=== PATIENT | male | born 1975 | race Caucasian/White ===

== ENCOUNTER 2016-04-26 15:42 | Emergency (ER) | payer BC ==
[~2016-04-26] VITALS: Ht 190.5 cm; Wt 85.0 kg
[~2016-04-26 15:42] MED LIST: BACTRIM DS 8001 TAB PO; CLARITIN 1010 MG/TAB; CLARITIN 1010 MG/TAB PO; CLEOCIN HCL300 MG PO; DOXYCYCLINE 10100 MG PO; FLEXERIL 1010 MG/TAB PO; FLEXERIL5 MG PO; IBU800 M1 PO; LEVAQUIN 5500 MG/TA1 PO; MOTRIN 600600 MG/TAB PO; NO HOME MEDICATIONS; NORCO 325 MG-51 TAB PO; NORCO 325 MG-7.1 TAB PO; PHENERGAN 25 TA25 MG PO; PREDNISONE20 MG PO; SKELAXIN 800MG800 MG PO; TRIAM OI 15 0.025 TOP; TRIAMCINOLONE AC0.13 TP; VENTOLIN0.09 MG IH; ZOFRAN ODT4 MG PO
[2016-04-26 15:54] VITALS: BP 103/79; PULSE 90; TEMP 98.8
[2016-04-26 16:29] LABS: INFLUENZA B NEGATIVE
== END 2016-04-26 16:43 | disposition home or self-care (01) ==
LOC: COL.ER 15:42
PROVIDERS: Physician Assistant
DX: J11.1 Influenza due to unidentified influenza virus with other respiratory manifestations (principal); Z87.891 Personal history of nicotine dependence

== ENCOUNTER 2016-11-09 13:56 | Outpatient (RCR) | payer OTHER ==
[2016-11-11] MEDS ORDERED: DOXYCYCLINE 10100 MG PO (09:52)
[2016-11-11] MEDS ORDERED: NORCO 325 MG-51 TAB PO (09:52)
== END 2016-12-10 14:04 | disposition still patient (30) ==
LOC: WSOH 13:56
DX: R10.32 Left lower quadrant pain (principal); Z90.49 Acquired absence of other specified parts of digestive tract

== ENCOUNTER 2016-11-11 08:38 | Emergency (ER) | payer SELFPAY ==
[~2016-11-11] VITALS: Ht 188 cm; Wt 85.0 kg
[2016-11-11 08:46] VITALS: TEMP 97.9
[2016-11-11] MEDS ORDERED: NORCO 325 MG-51 TAB PO (09:52)
[2016-11-11] MEDS ORDERED: DOXYCYCLINE 10100 MG PO (09:52)
[2016-11-11 10:13] VITALS: BP 106/53; PULSE 68
[2016-11-11 10:13] LABS: PH 5 (5-8); SQUAMOUS EPITHELIAL None Seen /hpf; URINE APPEARANCE Clear; URINE BACTERIA None Seen /hpf; URINE BILIRUBIN Negative (NEGATIVE); URINE BLOOD 2+ (NEGATIVE); URINE COLOR Yellow; URINE GLUCOSE Negative (NEGATIVE); URINE KETONE Negative (NEGATIVE); URINE RBC None Seen /hpf; URINE UROBILINOGEN Negative (NEGATIVE); URINE WBC 0-2 /hpf
[2016-11-11 11:48] LABS: CHLAMYDIA/TRACH by PCR Male NOT DETECTED; Neisseria Gon by PCR Male NOT DETECTED
== END 2016-11-11 10:14 | disposition home or self-care (01) ==
LOC: COL.ER 08:38
PROVIDERS: Emergency Medicine
DX: I88.8 Other nonspecific lymphadenitis (principal)
CPT/HCPCS: J1885

== ENCOUNTER → 2016-11-24 | Outpatient (CLI) | payer BC | LOC: COL.RAD 12:16 | DX: R59.0 Localized enlarged lymph nodes (principal); R10.9 Unspecified abdominal pain ==

== ENCOUNTER 2016-12-07 09:06 | Emergency (ER) | payer BC ==
[~2016-12-07] VITALS: Ht 190.5 cm; Wt 85.0 kg
[2016-12-07 09:13] VITALS: TEMP 97.7
[2016-12-07 10:16] LABS: BASO % 0.7 % (0.0-2.0); EOS # 0.2 (0.0-0.7); EOS % 3.3 % (0-4.0); GRAN # 3.1 (1.4-6.5); HEMATOCRIT 44.3 % (42.0-52.0); LYMPH # 1.6 (1.2-3.4); LYMPH % 29.1 % (20.0-51.0); MEAN CELL VOLUME 90 fl (80.0-100.0); MEAN CORPUSCULAR HEMOGLOBIN 30 pg (27.0-31.0); MEAN CORPUSCULAR HGB CONC 34 g/dl (33.0-37.0); MEAN PLATELET VOLUME 12.2 fl (7.4-10.4); MONO # 0.5 (0.1-0.6); MONO % 8.7 % (1.7-9.3); PLATELET COUNT 165 K/mm3 (130-400); RED BLOOD COUNT 4.95 M/mm3 (4.20-5.60); REDCELL DISTRIBUTION WIDTH-CV 12.7 % (11.5-14.5); WHITE BLOOD COUNT 5.4 K/mm3 (4.8-10.8)
[2016-12-07 10:34] LABS: ADJUSTED CALCIUM 9.3 mg/dL (8.4-10.2); ALANINE AMINOTRANSFERASE 19 U/L (21-72); ALBUMIN 4.1 gm/dL (3.5-5.0); ALKALINE PHOSPHATASE 41 U/L (50-136); ANION GAP 9 mmol/L (7-16); BLOOD UREA NITROGEN 22 mg/dL (9-20); CALCIUM 9.4 mg/dL (8.4-10.2); CARBON DIOXIDE 27 mmol/L (22-30); CHLORIDE 102 mmol/L (98-107); CREATININE, serum 1.02 mg/dL (0.66-1.25); GLUCOSE 84 mg/dL (74-106); POTASSIUM 4.4 mmol/L (3.4-5.0); SODIUM 139 mmol/L (137-145); TOTAL PROTEIN 6.8 gm/dL (6.4-8.2)
[2016-12-07 10:41] LABS: C-REACTIVE PROTEIN < 0.5 mg/dL (0.0-0.9)
[2016-12-07 11:45] LABS: PH 5 (5-8); SQUAMOUS EPITHELIAL None Seen /hpf; URINE APPEARANCE Clear; URINE BACTERIA None Seen /hpf; URINE BILIRUBIN Negative (NEGATIVE); URINE BLOOD Negative (NEGATIVE); URINE COLOR Yellow; URINE GLUCOSE Negative (NEGATIVE); URINE KETONE Negative (NEGATIVE); URINE RBC 0-2 /hpf; URINE UROBILINOGEN Negative (NEGATIVE); URINE WBC 0-2 /hpf
[2016-12-07 12:11] VITALS: BP 119/69; PULSE 59
== END 2016-12-07 12:12 | disposition home or self-care (01) ==
LOC: COL.ER 09:06
PROVIDERS: Nurse Practitioner
DX: R10.31 Right lower quadrant pain (principal); R19.7 Diarrhea, unspecified; G43.909 Migraine, unspecified, not intractable, without status migrainosus; F12.10 Cannabis abuse, uncomplicated; F17.210 Nicotine dependence, cigarettes, uncomplicated; Z90.49 Acquired absence of other specified parts of digestive tract
CPT/HCPCS: J7030

== ENCOUNTER 2017-02-15 22:15 | Emergency (ER) | payer BC ==
[~2017-02-15] VITALS: Ht 190.5 cm; Wt 84.1 kg
[2017-02-15 22:21] VITALS: TEMP 96.9
[2017-02-15 22:51] LABS: BASO # 0.1 (0.0-0.2); BASO % 1.1 % (0.0-2.0); EOS # 0.2 (0.0-0.7); EOS % 3.7 % (0-4.0); GRAN # 3.1 (1.4-6.5); GRAN % 49.9 % (42.2-75.2); HEMATOCRIT 41.5 % (42.0-52.0); HEMOGLOBIN 14.3 g/dl (13.5-18.0); LYMPH # 2.5 (1.2-3.4); LYMPH % 39.7 % (20.0-51.0); MEAN CELL VOLUME 89 fl (80.0-100.0); MEAN CORPUSCULAR HEMOGLOBIN 31 pg (27.0-31.0); MEAN CORPUSCULAR HGB CONC 35 g/dl (33.0-37.0); MONO # 0.3 (0.1-0.6); MONO % 5.4 % (1.7-9.3); PLATELET COUNT 168 K/mm3 (130-400); RED BLOOD COUNT 4.66 M/mm3 (4.20-5.60); WHITE BLOOD COUNT 6.3 K/mm3 (4.8-10.8)
[2017-02-15 23:01] LABS: ALANINE AMINOTRANSFERASE 24 U/L (21-72); ALBUMIN 4.2 gm/dL (3.5-5.0); ALKALINE PHOSPHATASE 39 U/L (50-136); ANION GAP 10 mmol/L (7-16); BILIRUBIN,TOTAL 0.7 mg/dL (0.0-1.0); BLOOD UREA NITROGEN 23 mg/dL (9-20); CALCIUM 9.2 mg/dL (8.4-10.2); CARBON DIOXIDE 26 mmol/L (22-30); CHLORIDE 104 mmol/L (98-107); CREATINE KINASE 80 U/L (55-170); GLUCOSE 113 mg/dL (74-106); LIPASE 138 U/L (23-300); POTASSIUM 3.9 mmol/L (3.4-5.0); SODIUM 140 mmol/L (137-145); TOTAL PROTEIN 6.7 gm/dL (6.4-8.2)
[2017-02-15 23:10] LABS: B-TYPE NATRIURETIC PEPTIDE 111 pg/mL (0-125)
[2017-02-15 23:15] LABS: TROPONIN-I < 0.012 ng/mL (0.000-0.034)
[2017-02-16] MEDS ORDERED: MEDROL 4MG DOSPA4 MG PO (00:03)
[2017-02-16] MEDS ORDERED: ULTRAM 50MG TAB50 MG PO (00:03)
[2017-02-16 00:40] VITALS: BP 115/61; PULSE 61
== END 2017-02-16 01:01 | disposition home or self-care (01) ==
LOC: COL.ER 22:15
PROVIDERS: Emergency Medicine
DX: R07.9 Chest pain, unspecified (principal); Z86.79 Personal history of other diseases of the circulatory system
CPT/HCPCS: J2060; J7030; J7512; Q9967

== ENCOUNTER → 2017-10-17 | Outpatient (CLI) | payer OTHER ==
[~2017-10-17] MED LIST changes: +MEDROL 4MG DOSPA4 MG PO; +ULTRAM 50MG TAB50 MG PO
== END ==
LOC: COL.RAD 13:16
DX: S43.491A Other sprain of right shoulder joint, initial encounter (principal); M19.011 Primary osteoarthritis, right shoulder; M25.311 Other instability, right shoulder; S43.001A Unspecified subluxation of right shoulder joint, initial encounter
CPT/HCPCS: A9585; Q9967

== ENCOUNTER 2017-10-18 15:02 | Outpatient (RCR) | payer OTHER | END 2017-10-24 13:47 | disposition home or self-care (01) | LOC: WSOH 15:02 | DX: S43.001A Unspecified subluxation of right shoulder joint, initial encounter (principal); F17.210 Nicotine dependence, cigarettes, uncomplicated; X50.0XXA Overexertion from strenuous movement or load, initial encounter; Y92.214 College as the place of occurrence of the external cause; Y99.0 Civilian activity done for income or pay; Z79.1 Long term (current) use of non-steroidal anti-inflammatories (NSAID) ==

== ENCOUNTER 2019-04-04 15:45 | Outpatient (RCR) | payer OTHER | END 2019-04-24 | disposition home or self-care (01) | LOC: WSOT | DX: S50.01XA Contusion of right elbow, initial encounter (principal); Z90.49 Acquired absence of other specified parts of digestive tract; Z98.890 Other specified postprocedural states; W22.8XXA Striking against or struck by other objects, initial encounter; Y99.0 Civilian activity done for income or pay | CPT/HCPCS: 24774; L1810 ==

== ENCOUNTER 2019-12-22 10:21 | Emergency (ER) | payer BC ==
[~2019-12-22] VITALS: Ht 190.5 cm; Wt 86.4 kg
[2019-12-22 10:23] VITALS: TEMP 98.3
[2019-12-22 11:25] LABS: BASO # 0.1 (0.0-0.2); BASO % 0.6 % (0.0-2.0); EOS # 0.1 (0.0-0.7); EOS % 1.2 % (0-4.0); GRAN # 6.8 (1.4-6.5); GRAN % 76.3 % (42.2-75.2); HEMATOCRIT 43.1 % (42.0-52.0); HEMOGLOBIN 14.8 g/dl (13.5-18.0); LYMPH # 1.4 (1.2-3.4); LYMPH % 15.9 % (20.0-51.0); MEAN CELL VOLUME 88 fl (80.0-100.0); MEAN CORPUSCULAR HEMOGLOBIN 30 pg (27.0-31.0); MEAN CORPUSCULAR HGB CONC 34 g/dl (33.0-37.0); MEAN PLATELET VOLUME 12.1 fl (7.4-10.4); MONO # 0.5 (0.1-0.6); MONO % 5.6 % (1.7-9.3); PLATELET COUNT 176 K/mm3 (130-400); RED BLOOD COUNT 4.91 M/mm3 (4.20-5.60); REDCELL DISTRIBUTION WIDTH-CV 12.9 % (11.5-14.5)
[2019-12-22 11:31] LABS: INR 1.1 (0.8-3.0); PROTHROMBIN TIME 11.8 SECONDS (9.7-12.8)
[2019-12-22 11:34] LABS: PARTIAL THROMBOPLASTIN TIME 32.4 SECONDS (26.0-37.0)
[2019-12-22 11:37] LABS: BILIRUBIN,TOTAL 1.1 mg/dL (0.0-1.0); CALCIUM 8.9 mg/dL (8.4-10.2); CREATININE, serum 0.99 (0.66-1.25); POTASSIUM 4.3 mmol/L (3.4-5.0); TOTAL PROTEIN 6.7 gm/dL (6.4-8.2)
[2019-12-22 13:27] VITALS: BP 98/61; PULSE 67
== END 2019-12-22 13:27 | disposition short-term general hospital (02) ==
LOC: COL.ER 10:21
PROVIDERS: Emergency Medicine
DX: S06.6X0A Traumatic subarachnoid hemorrhage without loss of consciousness, initial encounter (principal); Z88.2 Allergy status to sulfonamides; Z88.1 Allergy status to other antibiotic agents; Z88.8 Allergy status to other drugs, medicaments and biological substances; W01.198A Fall on same level from slipping, tripping and stumbling with subsequent striking against other object, initial encounter; Y92.410 Unspecified street and highway as the place of occurrence of the external cause
CPT/HCPCS: J1953; J2405; J2550; J3010; J7030

== ENCOUNTER 2020-06-16 05:34 | Emergency (ER) | payer BC ==
[~2020-06-16] VITALS: Ht 190.5 cm; Wt 93.2 kg
[2020-06-16 05:40] VITALS: TEMP 97.6
[2020-06-16 06:00] LABS: BASO # 0.1 (0.0-0.2); EOS # 0.2 (0.0-0.7); EOS % 3.3 % (0-4.0); GRAN # 3.2 (1.4-6.5); HEMATOCRIT 47.2 % (42.0-52.0); HEMOGLOBIN 15.5 g/dl (13.5-18.0); LYMPH # 3.2 (1.2-3.4); LYMPH % 43.7 % (20.0-51.0); MEAN CELL VOLUME 91 fl (80.0-100.0); MEAN CORPUSCULAR HEMOGLOBIN 30 pg (27.0-31.0); MEAN CORPUSCULAR HGB CONC 33 g/dl (33.0-37.0); MEAN PLATELET VOLUME 11.8 fl (7.4-10.4); MONO # 0.6 (0.1-0.6); MONO % 7.7 % (1.7-9.3); PLATELET COUNT 187 K/mm3 (130-400); RED BLOOD COUNT 5.21 M/mm3 (4.20-5.60); REDCELL DISTRIBUTION WIDTH-CV 12.7 % (11.5-14.5)
[2020-06-16 06:08] LABS: PROTHROMBIN TIME 11.1 SECONDS (9.7-12.8)
[2020-06-16 06:10] LABS: ALANINE AMINOTRANSFERASE 22 U/L (4-49); ALBUMIN 3.9 gm/dL (3.5-5.0); ALKALINE PHOSPHATASE 40 U/L (50-136); ANION GAP 6 mmol/L (7-16); AST,SGOT 30 U/L (15-37); BILIRUBIN,TOTAL 0.3 mg/dL (0.0-1.0); BLOOD UREA NITROGEN 33 mg/dL (9-20); CALCIUM 8.5 mg/dL (8.4-10.2); CARBON DIOXIDE 29 mmol/L (22-30); CHLORIDE 101 mmol/L (98-107); GLUCOSE 118 mg/dL (74-106); POTASSIUM 4.2 mmol/L (3.4-5.0); SODIUM 137 mmol/L (137-145); TOTAL PROTEIN 6.9 gm/dL (6.4-8.2)
[2020-06-16] MEDS ORDERED: FIORICET 325 MG1 TA1 PO (06:15)
[2020-06-16] MEDS ORDERED: DEPAKOTE ER 25250 MG PO (06:16)
[2020-06-16] MEDS ORDERED: DEPAKOTE ER 50500 MG PO (06:16)
[2020-06-16] MEDS ORDERED: PROVENTIL0.09 MG/A1 IH (06:17)
[2020-06-16 06:29] LABS: TROPONIN-I < 0.012 ng/mL (0.000-0.035)
[2020-06-16 06:45] VITALS: BP 103/60; PULSE 56
== END 2020-06-16 07:04 | disposition home or self-care (01) ==
LOC: COL.ER 05:34
PROVIDERS: Emergency Medicine
DX: D75.1 Secondary polycythemia (principal); R00.2 Palpitations; Z88.2 Allergy status to sulfonamides; Z88.1 Allergy status to other antibiotic agents